=== PATIENT | female | born 2000 | race Caucasian/White ===

== ENCOUNTER 2024-04-02 17:23 | Emergency (ER) | payer SELFPAY ==
[2024-04-02 17:31] VITALS: BP 119/65; PULSE 81; RESP 14; TEMP 98.3; BMI 31.2
[2024-04-02] MEDS ORDERED: ACETAMINOPHEN 325 MG TABLET (FP) ONE (18:25)
[2024-04-02] MEDS: ACETAMINOPHEN 500 MG TABLET (FP) PO ONE (18:31)
[2024-04-02 18:34] LABS: BASO % 0.3 % (0-2.0); EOS % 0.7 % (0-4.5); HEMATOCRIT 42.4 % (32.4-45.2); HEMOGLOBIN 14.5 GM/dL (10.7-15.3); LYMPH % 32.4 % (8-40); MCH 27.6 pg (25.7-33.7); MCHC 34.1 g/dl (32.0-36.0); MONO % 7.1 % (3.8-10.2); NEUT % 59.5 % (42.8-82.8); PLATELET COUNT 173 10^3/uL (134-434); RBC 5.24 M/mm3 (3.60-5.2); RDW 15.2 % (11.6-15.6); WHITE BLOOD COUNT 8.6 K/mm3 (4.0-10.0)
[2024-04-02 18:42] LABS: EPI CELLS 29 /uL (0-25.1); HYALINE CASTS 1 /uL (0-3.1); URINE APPEARANCE CLEAR; URINE BACTERIA 1244 /uL (0-1359); URINE BILIRUBIN NEGATIVE (NEGATIVE); URINE COLOR YELLOW; URINE GLUCOSE (UA) NEGATIVE (NEGATIVE); URINE KETONE 1+ (NEGATIVE); URINE LEUK ESTERASE TRACE (NEGATIVE); URINE NITRITE NEGATIVE (NEGATIVE); URINE PROTEIN 2+ (NEGATIVE); URINE RBC 28 /uL (0-23.9); URINE UROBILINOGEN 0.2 mg/dL (0.2-1.0); URINE WBC 18 /uL (0-25.8)
[2024-04-02] MEDS: LACTATED RINGERS SOLUTION 1000 ML INFUS.BAG IV ONE (18:47)
[2024-04-02] MEDS ORDERED: CEFTRIAXONE 1 GM/50 ML BAG ONE (18:53)
[2024-04-02 19:00] LABS: POTASSIUM 3.3 mmol/L (3.5-5.1)
[2024-04-02 19:02] LABS: ALBUMIN 4.3 g/dl (3.4-5.0); CALCIUM 9.1 mg/dL (8.5-10.1)
[2024-04-02 19:03] LABS: BLOOD UREA NITROGEN 7.1 mg/dL (7-18)
[2024-04-02 19:05] LABS: CREATININE 0.7 mg/dL (0.55-1.3)
[2024-04-02 19:06] LABS: BILIRUBIN,TOTAL 0.5 mg/dL (0.2-1); TOT PROT 8.4 g/dl (6.4-8.2)
[2024-04-02] MEDS ORDERED: POTASSIUM CHLORIDE ORAL LIQUID 20 MEQ/15 ML ONE (19:15)
[2024-04-02] MEDS: POTASSIUM CHLORIDE ORAL LIQUID 20 MEQ/15 ML PO ONE (19:19)
== END 2024-04-02 21:38 | disposition home or self-care (01) ==
LOC: JER 17:23
PROC: 3E033NZ Introduction of Analgesics, Hypnotics, Sedatives into Peripheral Vein, Percutaneous Approach (ICD-10-PCS; principal; 2024-04-02)
DX: O26.891 Other specified pregnancy related conditions, first trimester (principal); R10.2 Pelvic and perineal pain; O99.891 Other specified diseases and conditions complicating pregnancy; R07.9 Chest pain, unspecified; O23.41 Unspecified infection of urinary tract in pregnancy, first trimester; Z3A.01 Less than 8 weeks gestation of pregnancy
CPT/HCPCS: 36415; 76705-TC; 76817-TC; 80053; 81003; 84702; 84703; 85025; 86850; 86900; 86901; 87086; 93005; 93010; 99285-25

== ENCOUNTER 2024-04-04 16:36 | Emergency (ER) | payer SELFPAY ==
[2024-04-04 16:42] VITALS: BP 118/60; PULSE 101; RESP 18; TEMP 98.4; BMI 35.2
[2024-04-04 17:13] LABS: BASO % 0.4 % (0-2.0); EOS % 0.8 % (0-4.5); HEMATOCRIT 42.2 % (32.4-45.2); HEMOGLOBIN 14.8 GM/dL (10.7-15.3); LYMPH % 32.4 % (8-40); MCH 28.6 pg (25.7-33.7); MCHC 35.2 g/dl (32.0-36.0); MEAN CELL VOLUME 81.3 fl (80-96); MEAN PLT VOLUME 8.8 fl (7.5-11.1); MONO % 8.8 % (3.8-10.2); NEUT % 57.6 % (42.8-82.8); PLATELET COUNT 178 10^3/uL (134-434); RBC 5.19 M/mm3 (3.60-5.2); RDW 15.1 % (11.6-15.6); WHITE BLOOD COUNT 7.4 K/mm3 (4.0-10.0)
[2024-04-04 17:29] LABS: POTASSIUM 3.9 mmol/L (3.5-5.1)
[2024-04-04 17:32] LABS: BLOOD UREA NITROGEN 7.5 mg/dL (7-18); CALCIUM 8.9 mg/dL (8.5-10.1)
[2024-04-04 17:35] LABS: CREATININE 0.7 mg/dL (0.55-1.3)
[2024-04-04 17:36] LABS: BILIRUBIN,TOTAL 0.6 mg/dL (0.2-1)
[2024-04-04 17:40] LABS: TOT PROT 7.9 g/dl (6.4-8.2)
== END 2024-04-04 19:29 | disposition home or self-care (01) ==
LOC: JERFT 16:36 → JER 16:36 → JERFT 19:29
DX: O02.81 Inappropriate change in quantitative human chorionic gonadotropin (hCG) in early pregnancy (principal)
CPT/HCPCS: 36415; 80053; 84702; 85025; 99283-25

== ENCOUNTER 2024-04-10 15:47 | Emergency (ER) | payer SELFPAY ==
[2024-04-10 15:55] VITALS: BP 113/67; PULSE 82; RESP 18; TEMP 98; BMI 36.1
== END 2024-04-10 21:41 | disposition home or self-care (01) ==
LOC: JERFT 15:47
DX: O02.81 Inappropriate change in quantitative human chorionic gonadotropin (hCG) in early pregnancy (principal); Z3A.01 Less than 8 weeks gestation of pregnancy
CPT/HCPCS: 36415; 76817-TC; 84702; 99284-25